=== PATIENT | female | born 1990 | race American Indian/Alaskan Native ===

== ENCOUNTER 2016-06-06 10:18 | Emergency (ER) | payer MEDICAID ==
[2016-06-06 10:59] VITALS: BP 127/80
--- NOTE | 2016-06-06 11:32 | Emergency Department Report ---
Chief Complaint: Sore Throat Stated Complaint: SORE THROAT/STOMACH PAIN Time Seen by Provider: 06/06/16 11:24 - HPI History of Present Illness: Patient here complaining of sore throats for 4 days. Also complaining of abdominal pain without any nausea vomiting for the last couple days. She denies any fever or chills. Denies any nausea or vomiting. Patient says she took ibuprofen to relieve pain which is 7-8 out of 10. Denies any diarrhea. - ROS Review of Systems: All systems are negative unless stated in HPI above. - Exam Vital Signs: Vital Signs 06/06/16 10:54 Temperature 99.1 F Pulse Rate 113 H Respiratory 12 Rate Blood Pressure 127/80 O2 Sat by Pulse 99 Oximetry Physical Exam: General: This is a 46-year-old female well-nourished well-developed in no acute distress. Abdomen: Nontender to palpate in all quadrants, no guarding or rebound tenderness. Bowel sounds in all quadrant. No CVA tenderness. Mouth: Positive pharyngeal erythema with enlarged tonsils. no Exudate noted. MSE screening note: Focused history and physical exam performed. Due to findings the following was ordered:see [facility] ED Medical Decision Making - Lab Data Result diagrams: 06/06/16 11:32 06/06/16 11:32 - Medical Decision Making Medical decision making: Patient seen by provider in triage area. Appropriate protocol activated and patient to main ED to be seen by physician. ED Disposition for MSE Condition: Stable
[2016-06-06 11:41] LABS: Basophils % (Auto) 0.7 % (0.0-1.8); Eosinophils % (Auto) 0.9 % (0.0-4.3); Hematocrit 37.1 % (30.3-42.9); Hemoglobin 12.3 gm/dl (10.1-14.3); Mean Corpuscular HGB Conc 33 % (30-34); Mean Corpuscular Hemoglobin 30 pg (28-32); Mean Corpuscular Volume 91 fl (79-97); Platelet Count 314 K/mm3 (140-440); Red Blood Count 4.07 M/mm3 (3.65-5.03); Red Cell Distribution Width 14.2 % (13.2-15.2); White Blood Count 15.5 K/mm3 (4.5-11.0)
[2016-06-06 12:01] LABS: Anion Gap 19 mmol/L; BUN/Creatinine Ratio 14.28; Blood Urea Nitrogen 10 mg/dL (7-17); Carbon Dioxide 20 mmol/L (22-30); Chloride 100.6 mmol/L (98-107); Glucose 92 mg/dL (65-100); Lipase 24 units/L (13-60); Potassium 4.1 mmol/L (3.6-5.0); Sodium 135 mmol/L (137-145)
[2016-06-06 14:02] LABS: Bacteria,Urine 1+ /HPF (Negative); Bilirubin,Urine NEG (Negative); Blood,Urine LG (Negative); Ketones,Urine NEG (Negative); Leukocyte Esterase,Urine TR (Negative); Mucus,Urine 1+ /HPF; Nitrite,Urine NEG (Negative); Protein,Urine <15 mg/dL mg/dL (Negative); Urobilinogen,Urine < 2.0 mg/dL (<2.0)
== END 2016-06-06 11:33 | disposition left against medical advice (07) ==
LOC: ED 10:18
DX: J02.9 Acute pharyngitis, unspecified (principal); R10.9 Unspecified abdominal pain; Z53.21 Procedure and treatment not carried out due to patient leaving prior to being seen by health care provider
CPT/HCPCS: 36415; 80048; 81001; 81025; 83690; 85025; 87116; 87430

== ENCOUNTER 2016-06-07 20:45 | Emergency (ER) | payer MEDICAID ==
[2016-06-07] MEDS ORDERED: TYLENOL PO ONE (21:07)
[2016-06-07 21:44] LABS: Basophils % (Auto) 0.8 % (0.0-1.8); Hematocrit 33.9 % (30.3-42.9); Hemoglobin 11.4 gm/dl (10.1-14.3); Mean Corpuscular HGB Conc 34 % (30-34); Mean Corpuscular Hemoglobin 30 pg (28-32); Mean Corpuscular Volume 90 fl (79-97); Platelet Count 280 K/mm3 (140-440); Red Blood Count 3.75 M/mm3 (3.65-5.03); Red Cell Distribution Width 14.3 % (13.2-15.2)
[2016-06-07 21:53] LABS: Alanine Aminotransferase 10 units/L (7-56); Albumin/Globulin Ratio 1.6 %; Alkaline Phosphatase 54 units/L (35-129); BUN/Creatinine Ratio 11.42; Bilirubin,Total 0.3 mg/dL (0.1-1.2); Blood Urea Nitrogen 8 mg/dL (7-17); Calcium 8.8 mg/dL (8.4-10.2); Carbon Dioxide 23 mmol/L (22-30); Chloride 100.5 mmol/L (98-107); Glucose 94 mg/dL (65-100); Lipase 38 units/L (13-60); Sodium 138 mmol/L (137-145); Total Protein 6.5 g/dL (6.3-8.2)
[2016-06-07 21:55] LABS: Anion Gap 19 mmol/L
[2016-06-07 22:57] LABS: Bilirubin,Urine NEG (Negative); Blood,Urine LG (Negative); Ketones,Urine NEG (Negative); Leukocyte Esterase,Urine SM (Negative); Mucus,Urine 1+ /HPF; Nitrite,Urine NEG (Negative); Urobilinogen,Urine < 2.0 mg/dL (<2.0)
[2016-06-08 04:25] VITALS: BP 129/80
[2016-06-08] MEDS ORDERED: DECADRON PO ONE (04:50)
--- NOTE | 2016-06-08 05:04 | Emergency Department Report ---
ED Female HPI - General Chief complaint: Abdominal Pain Stated complaint: VAG SPOTTING/THROAT PAIN Time Seen by Provider: 06/08/16 04:38 Source: patient Mode of arrival: Ambulatory Limitations: No Limitations - History of Present Illness Initial comments: 26-year-old female comes in for complaint of sore throat and vaginal discharge 2 days. Patient reports that she just was notified by her boyfriend that he has gonorrhea. Patient complains of sore throat vaginal discharge with cloudy discharge dysuria fever chills. She denies nausea vomiting abdominal pain. He reports that there are sores in the back of her throat. Painful to swallow. She reports she has been taking Tylenol with a sore throat. MD Complaint: vaginal bleeding, vaginal discharge, dysuria, possible STD - Related Data Previous Rx's Medication Instructions Recorded Last Taken Type metroNIDAZOLE [Flagyl] 500 mg PO Q12HR #14 tab 06/08/16 Unknown Rx Allergies Allergy/AdvReac Type Severity Reaction Status Date / Time No Known Allergies Allergy Verified 06/08/16 04:59 ED Review of Systems ROS: Stated complaint: VAG SPOTTING/THROAT PAIN Other details as noted in HPI ENT: throat pain Gastrointestinal: denies: abdominal pain, nausea, vomiting Genitourinary: dysuria, discharge ED Past Medical Hx - Past Medical History Additional medical history: Vaginal delivery x 2 - Social History Smoking Status: Current Every Day Smoker Substance Use Type: Alcohol, Non Opiate Pain - Medications Home Medications: Home Medications Medication Instructions Recorded Confirmed Last Taken Type metroNIDAZOLE [Flagyl] 500 mg PO Q12HR #14 tab 06/08/16 Unknown Rx ED Physical Exam - General Limitations: No Limitations General appearance: alert, in no apparent distress - Head Head exam: Present: atraumatic, normocephalic - Eye Eye exam: Present: normal appearance - ENT ENT exam: Present: mucous membranes moist, TM's normal bilaterally - Neck Neck exam: Present: tenderness, full ROM, lymphadenopathy - Respiratory Respiratory exam: Present: normal lung sounds bilaterally - Cardiovascular Cardiovascular Exam: Present: normal rhythm, tachycardia - GI/Abdominal GI/Abdominal exam: Present: soft. Absent: distended, tenderness - Speculum exam: Present: vaginal discharge, cervical discharge. Absent: vaginal bleeding Bi-manual exam: Present: normal bi-manual exam. Absent: cervical motion tendernes, adnexal tenderness, adnexal mass, uterine enlargement, uterine tenderness - Extremities Exam Extremities exam: Present: normal inspection. Absent: pedal edema - Neurological Exam Neurological exam: Present: alert, oriented X3 - Psychiatric Psychiatric exam: Present: normal affect, normal mood ED Course Vital Signs 06/07/16 06/08/16 21:01 04:24 Temperature 100.2 F H 98.6 F Pulse Rate 123 H 95 H Respiratory 18 16 Rate Blood Pressure 152/81 Blood Pressure 129/80 [Left] O2 Sat by Pulse 98 100 Oximetry ED Medical Decision Making - Lab Data Result diagrams: 06/07/16 21:18 06/07/16 21:18 - Medical Decision Making Patient's been evaluated by this provider in fast track. CBC urinalysis, hCG serum, wet prep, rapid strep, GC swab, GC chlamydia urine all sent out. We will treat patient with Rocephin 250 mg IM, azithromycin 1 g,. Patient verbalized understanding. Critical care attestation.: If time is entered above; I have spent that time in minutes in the direct care of this critically ill patient, excluding procedure time. ED Disposition Clinical Impression: Sore throat, Vaginal discharge, Exposure to trichomonas Disposition: DISCHARGED TO HOME OR SELFCARE Is pt being admited?: No Does the pt Need Aspirin: No Condition: Stable Instructions: Abdominal Pain (ED), Trichomoniasis (ED) Additional Instructions: Complete antibiotic as prescribed. Have your primary care provider call Hospital medical records obtained your results for gonorrhea and chlamydia. He had trichomonas which is an STD he will need to contact her partner with severe aortic to be treated. Provider recommends that you have an HIV test done. Prescriptions: metroNIDAZOLE [Flagyl] 500 mg PO Q12HR #14 tab Referrals: SAILAJA BACA MD [Staff Physician] - 3-5 Days PRIMARY CAREMD [Primary Care Provider] - 3-5 Days Forms: Work/School Release Form(ED)
[2016-06-08] MEDS ORDERED: XYLOCAINE 1% MPF 5 mL INFILTRATI ONE (05:58)
[2016-06-08] MEDS ORDERED: ROCEPHIN IM ONE (05:58)
[2016-06-08] MEDS ORDERED: ZITHROMAX PO ONE (05:58)
== END 2016-06-08 06:07 | disposition home or self-care (01) ==
LOC: ED 20:45
DX: J02.9 Acute pharyngitis, unspecified (principal); N89.8 Other specified noninflammatory disorders of vagina; A59.9 Trichomoniasis, unspecified; F17.200 Nicotine dependence, unspecified, uncomplicated
CPT/HCPCS: 36415; 80053; 81001; 83690; 84703; 85025; 87116; 87210; 87591; 96372; 99284; J0696; J8540